=== PATIENT | male | born 2000 | race Two or more races ===

== ENCOUNTER 2022-08-09 15:32 | Emergency (ER) | payer OTHER ==
[~2022-08-09] VITALS: Ht 177.8 cm; Wt 90.7 kg
[2022-08-09] MEDS ORDERED: ADVIL LIQUI-GE200 MG PO (18:21)
[2022-08-09] MEDS ORDERED: METAXALONE800 MG PO (18:21)
[2022-08-09] MEDS ORDERED: TYLENOL ARTHRI650 MG PO (18:21)
== END 2022-08-09 18:33 | disposition home or self-care (01) ==
LOC: ER 15:32
DX: S39.012A Strain of muscle, fascia and tendon of lower back, initial encounter (principal); W10.8XXA Fall (on) (from) other stairs and steps, initial encounter; Y93.9 Activity, unspecified; Y92.89 Other specified places as the place of occurrence of the external cause; Y99.9 Unspecified external cause status